=== PATIENT | female | born 1990 | race Caucasian/White ===

== ENCOUNTER 2017-02-26 07:15 | Day surgery (SDC) | payer BC ==
[2017-02-26 08:51] LABS: ADD MAN DIFF? NO
[2017-02-26] MEDS ORDERED: HYDROmorphONE (0.2 MG/ML) 10ML SYG IV (09:00)
[2017-02-26] MEDS ORDERED: MEPERIDINE 25 MG INJ IV (09:00)
[2017-02-26] MEDS ORDERED: FENTAnyl 50 MCG/ML VIAL IV (09:00)
[2017-02-26] MEDS ORDERED: OXYCODONE/ACETAMINOPHEN (5/325) TAB PO (09:00)
[2017-02-26 09:02] LABS: BASOPHILS % 0.4 % (0.0-2.0); EOSINOPHILS # 0.2 10^3/ul (0.0-0.5); EOSINOPHILS % 2.7 % (0.0-7.0); HEMOGLOBIN 12.1 g/dl (12.0-16.0); LYMPHOCYTES # 1.6 10^3/ul (0.8-2.9); LYMPHOCYTES % 28.4 % (15.0-51.0); MEAN CORPUSCULAR HEMOGLOBIN 26.9 pg (29.0-33.0); MEAN CORPUSCULAR HGB CONC 33.6 g/dl (32.0-37.0); MEAN CORPUSCULAR VOLUME 80.2 fl (82.0-101.0); MEAN PLATELET VOLUME 10.2 fl (7.4-10.4); MONOCYTE # 0.4 10^3/ul (0.3-0.9); MONOCYTES % 6.5 % (0.0-11.0); NEUTROPHIL # 3.4 10^3/ul (1.6-7.5); NEUTROPHILS % 61.6 % (39.0-77.0); PLATELET COUNT 250 10^3/UL (140-415); RED BLOOD COUNT 4.49 10^6/ul (4.20-5.40); RED CELL DISTRIBUTION WIDTH 14.1 % (11.5-14.5)
[2017-02-26 09:02] LABS: WHITE BLOOD COUNT 5.5 10^3/ul (4.8-10.8)
[2017-02-26 09:13] LABS: ALANINE AMINOTRANSFERASE 34 IU/L (13-69); ALBUMIN 4.3 g/dl (3.3-4.9); ALBUMIN/GLOBULIN RATIO 1.53; ALKALINE PHOSPHATASE 50 IU/L (42-121); ANION GAP 15 (8-16); ASPARTATE AMINO TRANSFERASE 24 IU/L (15-46); BILIRUBIN,INDIRECT 0.2 mg/dl (0-1.1); BILIRUBIN,TOTAL 0.2 mg/dl (0.2-1.3); CARBON DIOXIDE 26 mmol/L (21-31); CHLORIDE 105 mmol/L (97-110); GLUCOSE 90 mg/dl (70-220); TOTAL PROTEIN 7.1 g/dl (6.1-8.1)
[2017-02-26 09:17] LABS: BLOOD UREA NITROGEN 8 mg/dl (7-20); CREATININE 0.61 mg/dl (0.44-1.00); INR 0.97; SODIUM 143 mmol/L (135-144)
[2017-02-26 09:18] LABS: PARTIAL THROMBOPLASTIN TIME 27.8 Sec (25.0-35.0)
[2017-02-26 09:19] LABS: POTASSIUM 3.3 mmol/L (3.5-5.1)
[2017-02-26] MEDS ORDERED: PROPOFOL 20 ML (09:52)
[2017-02-26] MEDS ORDERED: CEFAZOLIN 1 GM INJ (09:52)
[2017-02-26] MEDS ORDERED: LIDOCAINE 100 MG SYRINGE (09:53)
[2017-02-26] MEDS ORDERED: FENTAnyl 50 MCG/ML VIAL (09:53)
[2017-02-26] MEDS ORDERED: ONDANSETRON 4 MG INJ (10:05)
[2017-02-26] MEDS ORDERED: DEXAMETHASONE 4 MG/ML 1 ML INJ (10:06)
[2017-02-26] MEDS ORDERED: VASOPRESSIN 20 UNITS INJ ×2 (10:21→10:23)
[2017-02-26] MEDS: ONDANSETRON 4 MG INJ IV (11:02)
== END 2017-02-26 11:48 | disposition home or self-care (01) ==
LOC: SDS 07:15
DX: O02.1 Missed abortion (principal)
CPT/HCPCS: 59820; 80053; 85025; 85610; 85730; 86850; 86900; 86901; 88305

== ENCOUNTER 2018-08-16 17:07 | Outpatient (CLI) | payer BC | END 2018-08-16 20:55 | disposition home or self-care (01) | LOC: OBT 17:07 → L-D 17:08 → OBT 20:55 | DX: O36.8130 Decreased fetal movements, third trimester, not applicable or unspecified (principal); Z3A.38 38 weeks gestation of pregnancy | CPT/HCPCS: 76818 ==

== ENCOUNTER 2018-08-21 11:09 | Inpatient (IN) | payer BC ==
[2018-08-21] MEDS: LACTATED RINGER'S 1,000 ML IV ×5 (11:33→19:33)
[2018-08-21 11:57] LABS: ADD MAN DIFF? NO
[2018-08-21 12:00] LABS: BASOPHILS % 0.2 % (0.0-2.0); EOSINOPHILS % 0.5 % (0.0-7.0); HEMATOCRIT 38.1 % (37.0-47.0); HEMOGLOBIN 12.6 g/dl (12.0-16.0); LYMPHOCYTES # 1.6 10^3/ul (0.8-2.9); MEAN CORPUSCULAR HEMOGLOBIN 27.4 pg (29.0-33.0); MEAN CORPUSCULAR HGB CONC 33.1 g/dl (32.0-37.0); MEAN CORPUSCULAR VOLUME 82.8 fl (82.0-101.0); MEAN PLATELET VOLUME 12.3 fl (7.4-10.4); MONOCYTE # 0.5 10^3/ul (0.3-0.9); MONOCYTES % 8.5 % (0.0-11.0); NEUTROPHIL # 3.6 10^3/ul (1.6-7.5); NEUTROPHILS % 62.1 % (39.0-77.0); PLATELET COUNT 177 10^3/UL (140-415); RED CELL DISTRIBUTION WIDTH 14.7 % (11.5-14.5)
[2018-08-21 12:00] LABS: WHITE BLOOD COUNT 5.8 10^3/ul (4.8-10.8)
[2018-08-21] MEDS ORDERED: METHYLERGONOVINE 0.2 MG INJ IM ×2 (12:00→17:00)
[2018-08-21] MEDS ORDERED: MISOPROSTOL 200 MCG TAB PR ×2 (12:00→17:00)
[2018-08-21] MEDS ORDERED: OXYTOCIN 30 UNITS/LR 500 ML IV (12:00)
[2018-08-21] MEDS ORDERED: CARBOPROST 250 MCG INJ IM ×2 (12:00→17:00)
[2018-08-21 12:21] LABS: PARTIAL THROMBOPLASTIN TIME 28.2 Sec (23.0-35.0)
[2018-08-21 12:39] LABS: INR 0.86; PROTIME 11.8 Sec (11.9-14.9); PT RATIO 0.9
[2018-08-21] MEDS ORDERED: METOCLOPRAMIDE 10 MG INJ (15:33)
[2018-08-21] MEDS ORDERED: morphine SULFATE/PF (10 MG/10 ML) INJ (15:33)
[2018-08-21] MEDS ORDERED: MIDAZOLAM 1 MG/ML 2 ML INJ ×3 (15:57)
[2018-08-21] MEDS ORDERED: DIPHENHYDRAMINE 50 MG INJ (15:59)
[2018-08-21] MEDS ORDERED: OXYTOCIN 10 UNIT INJ ×2 (16:00→16:35)
[2018-08-21] MEDS ORDERED: ONDANSETRON 4 MG INJ (16:01)
[2018-08-21] MEDS ORDERED: FENTAnyl 50 MCG/ML VIAL (16:05)
[2018-08-21] MEDS: CEFAZOLIN 2 GM/50 ML (PMX) 50 ML IVPB (16:18)
[2018-08-21] MEDS ORDERED: ONDANSETRON 4 MG INJ IV (16:30)
[2018-08-21] MEDS ORDERED: NALBUPHINE HCL (10 MG/1 ML) INJ IV (16:30)
[2018-08-21] MEDS ORDERED: DIPHENHYDRAMINE 50 MG INJ IV ×2 (16:30)
[2018-08-21] MEDS ORDERED: MEPERIDINE 25 MG INJ IV (16:30)
[2018-08-21] MEDS ORDERED: HYDROmorphONE 0.5 MG/0.5 ML SYG IV ×2 (16:30)
[2018-08-21] MEDS ORDERED: KETOROLAC 30 MG INJ (16:30)
[2018-08-21] MEDS: ONDANSETRON 4 MG INJ IV (16:30)
[2018-08-21] MEDS ORDERED: NALOXONE (0.4 MG/ML) INJ IV (16:30)
[2018-08-21] MEDS ORDERED: ZOLPIDEM 5 MG TAB PO (16:30)
[2018-08-21] MEDS ORDERED: MIDAZOLAM 1 MG/ML 2 ML INJ IV (16:30)
[2018-08-21 16:39] LABS: RAPID PLASMA REAGIN NONREACTIVE (NR)
[2018-08-21] MEDS ORDERED: METHYLERGONOVINE 0.2 MG TAB PO (17:00)
[2018-08-21] MEDS: KETOROLAC 30 MG INJ IV (17:02)
[2018-08-21] MEDS: OXYTOCIN 30 UNITS/LR 500 ML IV ×3 (17:14→22:27)
[2018-08-21] MEDS: SENNA/DOCUSATE NA (8.6MG/50MG) TAB PO (21:00)
[2018-08-22] MEDS: LACTATED RINGER'S 1,000 ML IV ×2 (03:33→08:42)
[2018-08-22 06:47] LABS: ADD MAN DIFF? NO
[2018-08-22 06:51] LABS: BASOPHILS % 0.2 % (0.0-2.0); EOSINOPHILS % 0.4 % (0.0-7.0); HEMATOCRIT 29.7 % (37.0-47.0); HEMOGLOBIN 9.9 g/dl (12.0-16.0); LYMPHOCYTES # 1.8 10^3/ul (0.8-2.9); LYMPHOCYTES % 20.9 % (15.0-51.0); MEAN CORPUSCULAR HEMOGLOBIN 27.7 pg (29.0-33.0); MEAN CORPUSCULAR HGB CONC 33.3 g/dl (32.0-37.0); MEAN CORPUSCULAR VOLUME 83.2 fl (82.0-101.0); MEAN PLATELET VOLUME 11.6 fl (7.4-10.4); MONOCYTE # 0.6 10^3/ul (0.3-0.9); MONOCYTES % 7.4 % (0.0-11.0); NEUTROPHILS % 70.7 % (39.0-77.0); PLATELET COUNT 153 10^3/UL (140-415); RED BLOOD COUNT 3.57 10^6/ul (4.20-5.40); RED CELL DISTRIBUTION WIDTH 14.7 % (11.5-14.5)
[2018-08-22 06:51] LABS: WHITE BLOOD COUNT 8.5 10^3/ul (4.8-10.8)
[2018-08-22 07:13] LABS: ANION GAP 2 (5-13); BLOOD UREA NITROGEN 11 mg/dl (7-20); CALCIUM 7.9 mg/dl (8.4-10.2); CARBON DIOXIDE 27 mmol/L (21-31); CHLORIDE 105 mmol/L (97-110); CREATININE 0.61 mg/dl (0.44-1.00); Estimated GFR > 60 mL/min (>60); GLUCOSE 54 mg/dl (70-220); POTASSIUM 4.3 mmol/L (3.5-5.1); SODIUM 134 mmol/L (135-144)
[2018-08-22] MEDS: SENNA/DOCUSATE NA (8.6MG/50MG) TAB PO ×2 (09:00→21:41)
[2018-08-22] MEDS: KETOROLAC 30 MG INJ IV (11:50)
[2018-08-22 15:56] LABS: HEPATITIS B SURFACE ANTIGEN POSITIVE (NEGATIVE)
[2018-08-22] MEDS: IBUPROFEN 800 MG TAB PO (18:00)
[2018-08-22] MEDS: LANOLIN HPA 1 PKT TOP (18:00)
[2018-08-22] MEDS: HYDROCODONE/APAP (5/325) TAB PO (22:26)
[2018-08-23] MEDS: HYDROCODONE/APAP (5/325) TAB PO ×3 (03:20→16:31)
[2018-08-23] MEDS: MAGNESIUM HYDROXIDE 30ML CUP PO (08:46)
[2018-08-23] MEDS: SENNA/DOCUSATE NA (8.6MG/50MG) TAB PO (08:46)
[2018-08-23] MEDS: BISACODYL 10 MG SUPP PR (16:30)
[2018-08-23] MEDS ORDERED: MAGNESIUM HYDROXIDE 30ML CUP PO (18:00)
[2018-08-23] MEDS ORDERED: BISACODYL 10 MG SUPP PR (18:00)
[2018-08-24] MEDS: SENNA/DOCUSATE NA (8.6MG/50MG) TAB PO ×2 (00:33→09:48)
[2018-08-24] MEDS: HYDROCODONE/APAP (5/325) TAB PO (00:33)
[2018-08-24 01:03] LABS: HEPATITIS B SURFACE ANTIGEN REACTIVE (NON-REACTIVE)
[2018-08-24 08:11] LABS: ADD MAN DIFF? NO
[2018-08-24 08:14] LABS: WHITE BLOOD COUNT 6.9 10^3/ul (4.8-10.8)
[2018-08-24 08:14] LABS: BASOPHILS % 0.1 % (0.0-2.0); EOSINOPHILS # 0.1 10^3/ul (0.0-0.5); EOSINOPHILS % 1.5 % (0.0-7.0); HEMATOCRIT 30.2 % (37.0-47.0); HEMOGLOBIN 9.9 g/dl (12.0-16.0); LYMPHOCYTES # 1.6 10^3/ul (0.8-2.9); LYMPHOCYTES % 22.8 % (15.0-51.0); MEAN CORPUSCULAR HEMOGLOBIN 27.5 pg (29.0-33.0); MEAN CORPUSCULAR HGB CONC 32.8 g/dl (32.0-37.0); MEAN CORPUSCULAR VOLUME 83.9 fl (82.0-101.0); MEAN PLATELET VOLUME 10.5 fl (7.4-10.4); MONOCYTE # 0.5 10^3/ul (0.3-0.9); MONOCYTES % 6.8 % (0.0-11.0); NEUTROPHIL # 4.7 10^3/ul (1.6-7.5); NEUTROPHILS % 68.2 % (39.0-77.0); PLATELET COUNT 200 10^3/UL (140-415); RED CELL DISTRIBUTION WIDTH 14.7 % (11.5-14.5)
[2018-08-24] MEDS: MEASLES,MUMPS,RUBELLA VACCINE INJ SC* (09:49)
[2018-08-24] MEDS: IBUPROFEN 800 MG TAB PO (15:31)
[2018-08-24] MEDS: DIPHTH/TET/ACEL PERTUSS (ADULT) 0.5 ML VIAL IM* (15:33)
== END 2018-08-24 16:42 | disposition home or self-care (01) | DRG 788 ==
LOC: L-D 11:09 → PP1 21:26
PROVIDERS: Obstetrics & Gynecology
PROC: 10D00Z1 Extraction of Products of Conception, Low, Open Approach (ICD-10-PCS; principal; 2018-08-21 14:00)
DX: O34.211 Maternal care for low transverse scar from previous cesarean delivery (principal); O69.1XX0 Labor and delivery complicated by cord around neck, with compression, not applicable or unspecified; O99.02 Anemia complicating childbirth; D50.9 Iron deficiency anemia, unspecified; G89.18 Other acute postprocedural pain; Z3A.39 39 weeks gestation of pregnancy; Z37.0 Single live birth; Z23 Encounter for immunization
CPT/HCPCS: 80048; 85025; 85610; 85730; 86592; 86704; 86850; 86900; 86901; 87340; 90715; 99464